=== PATIENT | female | born 1995 | race Hispanic/Latino ===

== ENCOUNTER 2019-04-27 02:11 | Inpatient (IN) | payer OTHER | END 2019-05-03 18:00 | disposition home or self-care (01) | LOC: EDH 02:11 → EDHIP 05:21 → 4CH 07:15 | DX: K85.90 Acute pancreatitis without necrosis or infection, unspecified (principal); N39.0 Urinary tract infection, site not specified; E66.01 Morbid (severe) obesity due to excess calories; K80.20 Calculus of gallbladder without cholecystitis without obstruction ==